=== PATIENT | male | born 1990 | race Caucasian/White ===

== ENCOUNTER 2020-11-17 12:08 | Emergency (ER) | payer SELFPAY ==
[2020-11-17 12:19] VITALS: BP 113/63; PULSE 100; TEMP 98.4; BMI 34.9
[2020-11-17] MEDS ORDERED: IBUPROFEN 600 MG TABLET (FP) PO ONE ×2 (12:43→12:49)
== END 2020-11-17 13:01 | disposition home or self-care (01) ==
LOC: JERFT 12:08
DX: L03.312 Cellulitis of back [any part except buttock and flank] (principal)
CPT/HCPCS: 87070; 87186; 87205; 99283-25

== ENCOUNTER 2020-11-19 13:51 | Emergency (ER) | payer OTHER ==
[2020-11-19 13:58] VITALS: BMI 32.4
[2020-11-19] MEDS ORDERED: VANCOMYCIN 1 GM in D5W (PRE-DOCKED) 1,000 MG/250 ML IVPB ONE (14:58)
[2020-11-19] MEDS ORDERED: VANCOMYCIN 1 GRAM (PRE-DOCKED) 1,000 MG/250 ML BAG IVPB ONE (16:17)
[2020-11-19 17:03] LABS: BASO % 0.4 % (0-2.0); HEMATOCRIT 41.9 % (35.4-49); LYMPH % 18.3 % (8-40); MCH 30.1 pg (25.7-33.7); MCHC 33.4 g/dl (32.0-35.9); MEAN CELL VOLUME 90.2 fl (80-96); MEAN PLT VOLUME 8.8 fl (7.5-11.1); MONO % 7.5 % (3.8-10.2); NEUT % 71.8 % (42.8-82.8); PLATELET COUNT 308 K/MM3 (134-434); RBC 4.64 M/mm3 (4.00-5.60); RDW 13.4 % (11.9-15.9); WHITE BLOOD COUNT 13.7 K/mm3 (4.0-10.0)
[2020-11-19 17:28] LABS: ALBUMIN 3.9 g/dl (3.4-5.0); BLOOD UREA NITROGEN 8.2 mg/dL (7-18); CALCIUM 9.1 mg/dL (8.5-10.1)
[2020-11-19 17:31] LABS: CREATININE 0.6 mg/dL (0.55-1.3)
[2020-11-19 17:33] LABS: BILIRUBIN,TOTAL 0.4 mg/dL (0.2-1); TOT PROT 8.6 g/dl (6.4-8.2)
[2020-11-19 18:05] VITALS: BP 116/72; PULSE 69; TEMP 98.3
== END 2020-11-19 19:24 | disposition home or self-care (01) ==
LOC: JER 13:51
PROC: 0H9NXZZ Drainage of Left Foot Skin, External Approach (ICD-10-PCS; principal; 2020-11-19)
PROC: 3E03329 Introduction of Other Anti-infective into Peripheral Vein, Percutaneous Approach (ICD-10-PCS; 2020-11-19)
DX: L03.116 Cellulitis of left lower limb (principal)
CPT/HCPCS: 36415; 73630-TC-LT; 80053; 83605; 85025; 87040; 99285-25

== ENCOUNTER 2020-11-21 13:07 | Emergency (ER) | payer OTHER ==
[2020-11-21 13:13] VITALS: BP 113/71; PULSE 64; TEMP 98.6; BMI 24.1
== END 2020-11-21 13:43 | disposition home or self-care (01) ==
LOC: JERFT 13:07 → JER 13:07 → JERFT 13:43
DX: Z48.00 Encounter for change or removal of nonsurgical wound dressing (principal)
CPT/HCPCS: 99281-25

== ENCOUNTER 2023-06-14 10:36 | Day surgery (SDC) | payer OTHER ==
[2023-06-14 10:51] VITALS: BMI 21.3
[2023-06-14] MEDS ORDERED: MAG HYDROX/AL HYDROX/SIMETH 30 ML UNIT-DOSE CUP PO ONE (14:06)
[2023-06-14] MEDS ORDERED: FAMOTIDINE 20 MG/50 ML IVPB 20 MG/50 ML MG IVPB ONE (14:06)
[2023-06-14] MEDS ORDERED: SODIUM CHLORIDE 0.9% 500 ML INFUS.BAG IV ONE (14:06)
[2023-06-14] MEDS ORDERED: ACETAMINOPHEN 1000 MG/100 ML BAG IVPB ONE (14:06)
[2023-06-14] MEDS ORDERED: MAG HYDROX/AL HYDROX/SIMETH 30 ML UNIT-DOSE CUP ONE (14:30)
[2023-06-14] MEDS ORDERED: ACETAMINOPHEN INJECTION 100 ML IVPB ONE (14:30)
[2023-06-14] MEDS ORDERED: FAMOTIDINE 10 MG/ML VIAL IVPB ONE (14:31)
[2023-06-14 15:17] LABS: BASO % 0.8 % (0-2.0); EOS % 1.9 % (0-4.5); HEMATOCRIT 44.2 % (35.4-49); HEMOGLOBIN 14.9 GM/dL (11.7-16.9); LYMPH % 30.2 % (8-40); MCH 30.4 pg (25.7-33.7); MCHC 33.6 g/dl (32.0-35.9); MEAN CELL VOLUME 90.5 fl (80-96); MEAN PLT VOLUME 8.7 fl (7.5-11.1); NEUT % 61.1 % (42.8-82.8); PLATELET COUNT 308 10^3/uL (134-434); RBC 4.88 M/mm3 (4.00-5.60); RDW 13.3 % (11.9-15.9); WHITE BLOOD COUNT 9.2 K/mm3 (4.0-10.0)
[2023-06-14 15:52] LABS: POTASSIUM 3.9 mmol/L (3.5-5.1)
[2023-06-14 15:53] LABS: BLOOD UREA NITROGEN 9.8 mg/dL (7-18)
[2023-06-14 15:54] LABS: ALBUMIN 3.9 g/dl (3.4-5.0); CALCIUM 9.2 mg/dL (8.5-10.1)
[2023-06-14 15:59] LABS: BILIRUBIN,TOTAL 0.4 mg/dL (0.2-1); CREATININE 0.7 mg/dL (0.55-1.3); TOT PROT 8.1 g/dl (6.4-8.2)
[2023-06-14] MEDS ORDERED: ONDANSETRON 4 MG/2 ML VIAL IVPUSH PRN (21:00)
[2023-06-14] MEDS ORDERED: PANTOPRAZOLE SODIUM 40 MG VIAL IVPUSH SCH (21:30)
[2023-06-14] MEDS ORDERED: PANTOPRAZOLE SODIUM 40 MG VIAL ONE (21:46)
[2023-06-15 02:44] LABS: HEMATOCRIT 41.8 % (35.4-49); MCH 30.1 pg (25.7-33.7); MCHC 33.6 g/dl (32.0-35.9); MEAN CELL VOLUME 89.6 fl (80-96); MEAN PLT VOLUME 8.3 fl (7.5-11.1); PLATELET COUNT 301 10^3/uL (134-434); RBC 4.67 M/mm3 (4.00-5.60); RDW 13.2 % (11.9-15.9); WHITE BLOOD COUNT 9.6 K/mm3 (4.0-10.0)
[2023-06-15 06:31] LABS: INR 1.03 (0.83-1.09)
[2023-06-15 06:32] LABS: HEMATOCRIT 42.8 % (35.4-49); HEMOGLOBIN 14.3 GM/dL (11.7-16.9); MCH 30.4 pg (25.7-33.7); MCHC 33.5 g/dl (32.0-35.9); MEAN CELL VOLUME 90.9 fl (80-96); MEAN PLT VOLUME 8.4 fl (7.5-11.1); PLATELET COUNT 283 10^3/uL (134-434); RDW 12.9 % (11.9-15.9)
[2023-06-15 06:38] LABS: POTASSIUM 4.3 mmol/L (3.5-5.1)
[2023-06-15 06:44] LABS: CALCIUM 8.7 mg/dL (8.5-10.1)
[2023-06-15 06:45] LABS: ALBUMIN 3.6 g/dl (3.4-5.0); BLOOD UREA NITROGEN 12.8 mg/dL (7-18); MAGNESIUM 2.1 mg/dL (1.8-2.4)
[2023-06-15 06:46] LABS: CREATININE 0.8 mg/dL (0.55-1.3); PHOSPHOROUS 4.6 mg/dL (2.5-4.9)
[2023-06-15 06:47] LABS: TOT PROT 7.7 g/dl (6.4-8.2)
[2023-06-15 07:13] LABS: BILIRUBIN,TOTAL 0.4 mg/dL (0.2-1)
[2023-06-15 15:32] LABS: HEMOGLOBIN 14.3 GM/dL (11.7-16.9); MCH 30.4 pg (25.7-33.7); MEAN CELL VOLUME 89.5 fl (80-96); MEAN PLT VOLUME 8.7 fl (7.5-11.1); PLATELET COUNT 305 10^3/uL (134-434); RBC 4.69 M/mm3 (4.00-5.60); RDW 13.5 % (11.9-15.9)
[2023-06-15] MEDS ORDERED: BISACODYL 5 MG TABLET.DR (FP) PO ONE (16:00)
[2023-06-15] MEDS ORDERED: PEG 3350/NA SULF BICARB CL/KCL 4000 ML SOLN.RECON PO ONE (17:00)
[2023-06-16] MEDS ORDERED: DEXTROSE 5%-0.45% SALINE 1,000 ML IV SCH
[2023-06-16 09:31] LABS: BASO % 0.3 % (0-2.0); EOS % 2.2 % (0-4.5); HEMOGLOBIN 14.9 GM/dL (11.7-16.9); LYMPH % 28.4 % (8-40); MCH 30.5 pg (25.7-33.7); MEAN CELL VOLUME 89.8 fl (80-96); MEAN PLT VOLUME 8.6 fl (7.5-11.1); NEUT % 62.1 % (42.8-82.8); PLATELET COUNT 317 10^3/uL (134-434); RDW 13.2 % (11.9-15.9); WHITE BLOOD COUNT 9.3 K/mm3 (4.0-10.0)
[2023-06-16 09:50] LABS: POTASSIUM 3.7 mmol/L (3.5-5.1)
[2023-06-16 10:13] LABS: ALBUMIN 3.8 g/dl (3.4-5.0); BLOOD UREA NITROGEN 12.2 mg/dL (7-18)
[2023-06-16 10:16] LABS: CREATININE 0.9 mg/dL (0.55-1.3)
[2023-06-16 10:18] LABS: BILIRUBIN,TOTAL 0.8 mg/dL (0.2-1); TOT PROT 8.2 g/dl (6.4-8.2)
[2023-06-16 13:49] VITALS: TEMP 98.1
[2023-06-16 14:11] VITALS: BP 105/54; PULSE 57; RESP 18
== END 2023-06-16 16:51 | disposition home or self-care (01) ==
LOC: JER 10:36 → UNDOADMIN 18:57 → JERBED 18:57 → J8W 06-15 09:34 → JERBED 06-15 09:34 → JASUSAT 06-16 09:18 → J8W 06-16 09:21 → JASUSAT 06-16 16:51
PROVIDERS: ATTEND Nurse Practitioner Family
PROC: 0DBP8ZX Excision of Rectum, Via Natural or Artificial Opening Endoscopic, Diagnostic (ICD-10-PCS; principal; 2023-06-16 14:30)
DX: D12.8 Benign neoplasm of rectum (principal)
CPT/HCPCS: 36415; 74177-TC; 76705-TC; 80053; 82272; 83690; 83735; 84100; 85025; 85027; 85610; 86704; 86707; 86803; 86850; 86900; 86901; 87340; 87350; 87517; 87522; 88305-TC; 93005; 93010; 99285-25; Q9967

== ENCOUNTER 2023-07-20 00:49 | Emergency (ER) | payer OTHER ==
[2023-07-20 00:56] VITALS: BP 110/71; PULSE 67; RESP 18; TEMP 97.6; BMI 22.4
[2023-07-20] MEDS ORDERED: CIPROFLOXACIN 500 MG TABLET (RESTRICTED TO ID) PO ONE (01:48)
== END 2023-07-20 01:57 | disposition home or self-care (01) ==
LOC: JER 00:49
DX: A04.9 Bacterial intestinal infection, unspecified (principal); R19.7 Diarrhea, unspecified; R10.9 Unspecified abdominal pain; R14.0 Abdominal distension (gaseous)
CPT/HCPCS: 99283-25

== ENCOUNTER 2024-01-15 03:30 | Emergency (ER) | payer SELFPAY ==
[2024-01-15 03:36] VITALS: BP 134/83; PULSE 61; RESP 16; TEMP 98.6; BMI 25.4
[2024-01-15] MEDS ORDERED: ACETAMINOPHEN 500 MG TABLET (FP) ONE (04:26)
[2024-01-15] MEDS ORDERED: FLUORESCEIN NA 1 EA STRIP ONE (04:26)
[2024-01-15] MEDS ORDERED: TETRACAINE 0.5% OPHTH SOLN 2 ML BOTTLE ONE (04:26)
[2024-01-15] MEDS: ACETAMINOPHEN 500 MG TABLET (FP) PO ONE (04:35)
[2024-01-15] MEDS: TETRACAINE 0.5% HCL 0.6ML DROPPER.BOTTLE OS ONE (04:35)
[2024-01-15] MEDS: FLUORESCEIN NA 1 EA STRIP OS ONE (04:35)
== END 2024-01-15 05:05 | disposition home or self-care (01) ==
LOC: JER 03:30
DX: S05.02XA Injury of conjunctiva and corneal abrasion without foreign body, left eye, initial encounter (principal); R51.9 Headache, unspecified; X10.2XXA Contact with fats and cooking oils, initial encounter; Y99.0 Civilian activity done for income or pay
CPT/HCPCS: 99283-25

== ENCOUNTER 2024-05-16 13:04 | Emergency (ER) | payer OTHER ==
[2024-05-16 13:31] VITALS: BP 131/83; PULSE 80; RESP 17; TEMP 98.3; BMI 33.5
[2024-05-16] MEDS ORDERED: DIPHTH,PERTUSS(ACELL),TET 0.5 ML DISP.SYRIN IM ONE (14:45)
[2024-05-16] MEDS: DIPHTH,PERTUSS(ACELL),TET 0.5 ML DISP.SYRIN IM ONE (14:51)
== END 2024-05-16 14:59 | disposition home or self-care (01) ==
LOC: JERFT 13:04
PROC: 0HQKXZZ Repair Right Lower Leg Skin, External Approach (ICD-10-PCS; principal; 2024-05-16)
PROC: 3E0234Z Introduction of Serum, Toxoid and Vaccine into Muscle, Percutaneous Approach (ICD-10-PCS; 2024-05-16)
DX: S81.811A Laceration without foreign body, right lower leg, initial encounter (principal); W26.8XXA Contact with other sharp object(s), not elsewhere classified, initial encounter; Z23 Encounter for immunization
CPT/HCPCS: 12002-25; 90471; 90715; 99283-25